=== PATIENT | female | born 1940 | race Caucasian/White ===

== ENCOUNTER 2018-08-03 10:30 | Emergency (ER) | payer MEDICARE, OTHER ==
[~2018-08-03] VITALS: Ht 160 cm; Wt 82.5 kg
[2018-08-03 11:13] LABS: BASOPHILS ABSOLUTE AUTO 0.04 K/mm3 (0.00-0.23); BASOPHILS PERCENT AUTO 1 % (0-2); EOSINOPHILS PERCENT AUTO 2 % (0-6); Hematocrit 45.5 % (33.0-51.0); Hemoglobin 14.9 g/dL (11.5-16.0); IMMATURE GRAN ABSOLUTE AUTO 0.02 K/mm3 (0.00-0.10); IMMATURE GRAN PERCENT AUTO 0 % (0-1); LYMPHOCYTES ABSOLUTE AUTO 1.36 K/mm3 (0.84-5.20); LYMPHOCYTES PERCENT AUTO 16 % (21-46); MONOCYTES PERCENT AUTO 11 % (4-13); Mean Corpuscular HGB 32.5 pg (26.0-34.0); Mean Corpuscular HGB Conc 32.7 g/dL (31.5-36.5); Mean Corpuscular Volume 99 fL (80-100); Mean Platelet Volume 10.8 fL (9.1-12.4); NEUTROPHILS ABSOLUTE AUTO 6.04 K/mm3 (1.96-9.15); NEUTROPHILS PERCENT AUTO 71 % (41-73); Platelet Count 278 K/mm3 (150-400); RDW Coefficient Variation 14.2 % (11.7-14.2); RDW Standard Deviation 51.2 fL (35.1-46.3); Red Blood Cell Count 4.59 M/mm3 (3.80-5.20); White Blood Cell Count 8.56 K/mm3 (4.00-11.30)
[2018-08-03 11:14] LABS: Source, Urine Clean Catch
[2018-08-03] MEDS ORDERED: RITUXAN HY1400 MG/11 IV (11:28)
[2018-08-03 11:30] LABS: Bilirubin, Urine Neg (Neg); Blood, Urine Neg (Neg); Glucose Qualitative, Urine Neg (Neg); Ketones, Urine Neg (Neg); Leukocyte Esterase, Urine 1+ (Neg); Nitrite, Urine Neg (Neg); Protein, Urine Neg (Neg); Urobilinogen, Urine NORM (Normal)
[2018-08-03] MEDS ORDERED: FOLI1 PO (11:32)
[2018-08-03] MEDS ORDERED: METTREX2.5 PO (11:32)
[2018-08-03] MEDS ORDERED: ASCO500 PO (11:33)
[2018-08-03] MEDS ORDERED: OMEPRAZOLE MAGN20 MG PO (11:33)
[2018-08-03] MEDS ORDERED: TUMS500 MG PO (11:33)
[2018-08-03] MEDS ORDERED: CHOL10002 PO (11:34)
[2018-08-03] MEDS ORDERED: MAGOXI400 PO (11:34)
[2018-08-03] MEDS ORDERED: GLUC500 PO (11:34)
[2018-08-03] MEDS ORDERED: IRON150C PO (11:34)
[2018-08-03] MEDS ORDERED: KRILL OIL500 MG PO (11:35)
[2018-08-03] MEDS ORDERED: Daily Multiple1 EACH PO (11:35)
[2018-08-03] MEDS ORDERED: PROBIOTIC1 EAC1 PO (11:35)
[2018-08-03] MEDS ORDERED: MSM500 MG PO (11:35)
[2018-08-03] MEDS ORDERED: TURMERIC500 M2 PO (11:36)
[2018-08-03] MEDS ORDERED: POTASSIUM99 MG PO (11:36)
[2018-08-03 11:50] LABS: Alanine Aminotransfer (ALT/SGP 39 U/L (12-78); Albumin, Blood 3.7 g/dL (3.4-5.0); Albumin/Globulin Ratio 1.2 (0.8-1.8); Alk Phos 104 U/L (50-136); Anion Gap 4 mmol/L (6-16); Aspartate Aminotrans (AST/SGOT 22 U/L (12-37); Bilirubin, Total 0.2 mg/dL (0.1-1.0); Blood Urea Nitrogen 15 mg/dL (8-24); Bun/Creatinine Ratio 19.1 (12.0-20.0); CO2, Blood 24 mmol/L (21-32); Calcium, Blood 8.9 mg/dL (8.5-10.1); Chloride, Blood 110 mmol/L (98-108); Creatinine, Blood 0.79 mg/dL (0.40-1.00); Globulin, Blood 3.2 g/dL (2.2-4.0); Glomerular Filtration Rate >60 (60-); Glucose, Blood 114 mg/dL (70-99); Potassium, Blood 4.2 mmol/L (3.5-5.5); Sodium, Blood 138 mmol/L (136-145); Total Protein, Blood 6.9 g/dL (6.4-8.2)
[2018-08-03 12:07] LABS: Appearance, Urine Clear (Clear); Color, Urine Yellow (P-Yellow)
[2018-08-03 12:09] LABS: Bacteria Few /hpf; Red Blood Cells, Urine Not Seen /hpf (0-2); Squamous Epithelial Cells Rare /hpf (Few)
[2018-08-03] MEDS ORDERED: Flagyl500 MG PO (14:06)
[2018-08-03] MEDS ORDERED: CIPRO500 MG PO (14:06)
== END 2018-08-03 14:26 | disposition home or self-care (01) ==
LOC: ER 10:30
PROVIDERS: Physician Assistant
DX: K57.92 Diverticulitis of intestine, part unspecified, without perforation or abscess without bleeding (principal)
CPT/HCPCS: 36415; 80053; 81001; 85025; 86850; 86900; 86901; 87086; 93005; 93010; 99283-25

== ENCOUNTER → 2019-02-16 | Outpatient (CLI) | payer MEDICARE, OTHER ==
[~2019-02-16] MED LIST: ASCO500 PO; CHOL10002 PO; CIPRO500 MG PO; Daily Multiple1 EACH PO; FOLI1 PO; Flagyl500 MG PO; GLUC500 PO; IRON150C PO; KRILL OIL500 MG PO; MAGOXI400 PO; METTREX2.5 PO; MSM500 MG PO; OMEPRAZOLE MAGN20 MG PO; POTASSIUM99 MG PO; PROBIOTIC1 EAC1 PO; RITUXAN HY1400 MG/11 IV; TUMS500 MG PO; TURMERIC500 M2 PO
[2019-02-20 11:07] LABS: M-SPIKE, % Not Observed % (Not Observed); PROTEIN,TOTAL,URINE <4.0 mg/dL (Not Estab.)
== END | disposition home or self-care (01) ==
LOC: LAB SHORT 14:04 → LAB 14:04 → LAB FUT 02-10 14:20
PROVIDERS: Internal Medicine
DX: R79.9 Abnormal finding of blood chemistry, unspecified (principal)
CPT/HCPCS: 81050; 84156; 84166